=== PATIENT | male | born 1985 | race African-American/Black ===

== ENCOUNTER 2020-11-21 21:05 | Emergency (ER) | payer SELFPAY ==
[~2020-11-21] VITALS: Ht 177.8 cm; Wt 67.9 kg
[2020-11-21 21:18] VITALS: BP 141/93
== END 2020-11-21 22:46 | disposition home or self-care (01) ==
LOC: ED 21:15
DX: B34.9 Viral infection, unspecified (principal); Z20.822 Contact with and (suspected) exposure to COVID-19; F17.200 Nicotine dependence, unspecified, uncomplicated
CPT/HCPCS: 99283; U0003; U0005

== ENCOUNTER 2020-11-22 09:11 | Emergency (ER) | payer SELFPAY ==
[~2020-11-22] VITALS: Ht 177.8 cm; Wt 67.0 kg
[2020-11-22 09:14] VITALS: BP 124/47
== END 2020-11-22 11:51 | disposition home or self-care (01) ==
LOC: ED 09:15
DX: B34.9 Viral infection, unspecified (principal); Z20.822 Contact with and (suspected) exposure to COVID-19; F17.200 Nicotine dependence, unspecified, uncomplicated